=== PATIENT | male | born 1970 | race Caucasian/White ===

== ENCOUNTER 2019-10-27 11:29 | Inpatient (IN) | payer BC, OTHER ==
[2019-10-27 12:33] VITALS: BMI 30.7
--- NOTE | 2019-10-27 13:27 | HP ---
CIWA Score Nausea/Vomitin Muscle Tremors: 3 Anxiety: 3 Agitation: 2 Paroxysmal Sweats: 1-Minimal Palms Moist Orientation: 0-Oriented Tacttile Disturbances: 1-Very Mild Itch/Numbness Auditory Disturbances: 0-None Visual Disturbances: 0-None Headache: 2-Mild CIWA-Ar Total Score: 14 - Admission Criteria OASAS Guidelines: Admission for Medically Managed Detox: Requires at least one of the followin. CIWA greater than 12 2. Seizures within the past 24 hours 3. Delirium tremens within the past 24 hours 4. Hallucinations within the past 24 hours 5. Acute intervention needed for co occurring medical disorder 6. Acute intervention needed for co occurring psychiatric disorder 7. Severe withdrawal that cannot be handled at a lower level of care (continued vomiting, continued diarrhea, abnormal vital signs) requiring intravenous medication and/or fluids 8. Admitting History and Physical - Admission Chief Complaint: i need help to stop drinking alcohol History of Present Illness: this 49 years old male with alcohol dependence ,seeking help to stop,last detox 2016, history of subarachnoid hemorrhage in 918 nicotine dependence cirrhosis of liver longest sobriety 10 years History Source: Patient Limitations to Obtaining History: No Limitations - Past Medical History PERSONAL TRAINER: Yes: Other (subarachnoid hemorhage) Cardiovascular: Yes: HTN Gastrointestinal: Yes: GERD Hepatobiliary: Yes: Cirrhosis - Past Surgical History Additional Past Surgical History: drainage of subarachnoid in 07/26 - Smoking History Smoking history: Current every day smoker Have you smoked in the past 12 months: Yes Aproximately how many cigarettes per day: 10 - Alcohol/Substance Use Hx Alcohol Use: Yes History of Substance Use: reports: Tranquilizers - Social History Usual Living Arrangement: Yes: Alone 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 smoke 1/2 pack/day,living alone,hypertension Admission ROS [facility] - HPI Chief Complaint: i need help to stop drinking alcohol Allergies/Adverse Reactions: Allergies Allergy/AdvReac Type Severity Reaction Status Date / Time No Known Allergies Allergy Verified 10/27/19 12:22 History of Present Illness: this 49 years old male with alcohol dependence,seeking detox,last detox 10 years ago, history of cirrhosis hypertension subarachnoid hemorrhage in 07/26 nicotine dependence longest sobriety 10 years Exam Limitations: No Limitations - Ebola screening Have you traveled outside of the country in the last 21 days: No (N) Have you had contact with anyone from an Ebola affected area: No Do you have a fever: No - Review of Systems Constitutional: Malaise, Night Sweats, Changes in sleep, Weakness EENT: reports: Nose Congestion, Other (subarachnoid hemorrhage) Respiratory: reports: No Symptoms reported Cardiac: reports: No Symptoms Reported GI: reports: Nausea, Abdominal cramping : reports: No Symptoms Reported Musculoskeletal: reports: Back Pain, Muscle Pain Integumentary: reports: Dryness Neuro: reports: Tremors Endocrine: reports: No Symptoms Reported Hematology: reports: No Symptoms Reported Psychiatric: reports: Judgement Intact, Mood/Affect Appropiate, Orientated x3, Anxious, Depressed Other Systems: Reviewed and Negative Patient History - Patient Medical History Hx Anemia: No Hx Asthma: No Hx Chronic Obstructive Pulmonary Disease (COPD): No Hx Cancer: No Hx Cardiac Disorders: No Hx Congestive Heart Failure: No Hx Hypertension: Yes (onmed) Hx Hypercholesterolemia: No Hx Pacemaker: No HX Cerebrovascular Accident: No Hx Seizures: No Hx Dementia: No Hx Diabetes: No Hx Gastrointestinal Disorders: Yes (gerd) Hx Liver Disease: Yes (cirhrhosis) Hx Genitourinary Disorders: No Hx Sexually Transmitted Disorders: No Hx Renal Disease (ESRD): No Hx Thyroid Disease: No Hx Human Immunodeficiency Virus (HIV): No (never been tested) Hx Hepatitis C: No Hx Depression: Yes (anxious) Hx Suicide Attempt: No Hx Bipolar Disorder: No Hx Schizophrenia: No Other Medical History: no suicidal,no homicidal - Patient Surgical History Past Surgical History: Yes Other Surgical History: subarachnoid hemorrhage in07/26 - PPD History Previous Implant?: Yes Documented Results: Negative w/o proof Implanted On Prior [facility] Admission?: No PPD to be Administered?: Yes - Smoking Cessation Smoking history: Current every day smoker Have you smoked in the past 12 months: Yes Aproximately how many cigarettes per day: 20 Cigars Per Day: 0 Hx Chewing Tobacco Use: No Initiated information on smoking cessation: Yes 'Breaking Loose' booklet given: 10/27/19 - Substance & Tx. History Hx Alcohol Use: Yes Hx Substance Use: Yes Substance Use Type: Alcohol, Prescribed Hx Substance Use Treatment: Yes (2016) - Substances abused Alcohol Substance route: Oral Frequency: Daily Amount used: 10 to 12 of12 oz) beer Age of first use: 19 Date of last use: 10/26/19 Alprazolam (Xanax) Substance route: Oral Frequency: 3-6 times per week Amount used: 0.25 mg x2 Age of first use: 49 Date of last use: 10/26/19 Admission Physical Exam [facility] - Vital Signs Vital Signs: Vital Signs - 24 hr 10/27/19 12:28 Temperature 97.2 F L Pulse Rate 79 Respiratory 18 Rate Blood Pressure 140/86 - Physical General Appearance: Yes: Mild Distress, Irritable, Anxious HEENTM: Yes: Normal ENT Inspection, TOMMY, Pharynx Normal Respiratory: Yes: Lungs Clear, Normal Breath Sounds, No Respiratory Distress Neck: Yes: Within Normal Limits, Supple, Trachea in good position Breast: Yes: Within Normal Limits Cardiology: Yes: Within Normal Limits, Regular Rhythm, Regular Rate, S1, S2 Abdominal: Yes: Within Normal Limits, Non Tender, Flat, Soft Genitourinary: Yes: Within Normal Limits Back: Yes: Muscle Spasm Musculoskeletal: Yes: Muscle Pain 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: 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 NML intact, Fully Oriented, Alert, Motor Strength 5/5 Integumentary: Yes: Dry - Diagnostic (1) Alcohol dependence with uncomplicated withdrawal Current Visit: Yes Status: Acute (2) Xanax use disorder, mild Current Visit: Yes Status: Acute (3) Nicotine dependence Current Visit: Yes Status: Acute (4) Essential hypertension Current Visit: Yes Status: Acute (5) History of subarachnoid hemorrhage Current Visit: Yes Status: Acute Cleared for Admission [facility] - Detox or Rehab [facility] Level of Care: Medically Managed Detox Regimen/Protocol: Ativan Breathalyzer - Breathalyzer Breathalyzer: 194 Urine Drug Screen - Test Device Lot number: [id number] Expiration date: 06/06/21 - Control Is test valid?: Yes - Results Drug screen NEGATIVE: No Urine drug screen results: BZO-Benzodiazepines Inpatient Rehab Admission - Rehab Decision to Admit Inpatient rehab admission?: No
[2019-10-27] MEDS ORDERED: BISMUTH SUBSALICYLATE 524 MG/30 ML UD PO PRN (14:06)
[2019-10-27] MEDS ORDERED: IBUPROFEN 400 MG TABLET (FP) PO PRN (14:06)
[2019-10-27] MEDS ORDERED: LORazepam 1 MG TABLET PO PRN (14:06)
[2019-10-27] MEDS ORDERED: MENTHOL/PHENOL 1 EACH UD MM PRN (14:06)
[2019-10-27] MEDS ORDERED: MAGNESIUM CITRATE 300 ML BOTTLE PO PRN (14:06)
[2019-10-27] MEDS ORDERED: METHOCARBAMOL 500 MG TABLET PO PRN (14:06)
[2019-10-27] MEDS ORDERED: NICOTINE POLACRILEX 2 MG GUM BUC PRN (14:06)
[2019-10-27] MEDS ORDERED: hydrOXYzine PAMOATE 25 MG CAPSULE (FP) PO PRN (14:06)
[2019-10-27] MEDS ORDERED: MAGNESIUM HYDROX 2400MG/30ML ORAL SUSPENSION 30 ML CUP PO PRN (14:06)
[2019-10-27] MEDS ORDERED: ACETAMINOPHEN 325 MG TABLET (FP) PO PRN ×2 (14:06)
[2019-10-27] MEDS ORDERED: MAG HYDROX/AL HYDROX/SIMETH 30 ML UNIT-DOSE CUP PO PRN (14:06)
[2019-10-27] MEDS: LORazepam 2 MG TABLET PO SCH ×2 (17:17→22:16)
[2019-10-27] MEDS: NICOTINE 21 MG/24 HOURS TOPICAL PATCH TD SCH (17:24)
[2019-10-27] MEDS: THIAMINE HCL 100 MG TABLET (FP) PO SCH (23:16)
[2019-10-28] MEDS: LORazepam 2 MG TABLET PO SCH ×4 (05:48→22:19)
[2019-10-28] MEDS: PRENATAL VITAMINS W/ FOLIC ACID TABLET (FP) PO SCH (10:20)
[2019-10-28] MEDS: FAMOTIDINE 20 MG TABLET PO SCH (10:20)
[2019-10-28] MEDS: NICOTINE 21 MG/24 HOURS TOPICAL PATCH TD SCH (10:20)
[2019-10-28 10:40] LABS: HEMATOCRIT 37.7 % (35.4-49); HEMOGLOBIN 12.2 GM/dL (11.7-16.9); MCH 29.9 pg (25.7-33.7); MCHC 32.3 g/dl (32.0-35.9); MEAN CELL VOLUME 92.5 fl (80-96); MEAN PLT VOLUME 9.4 fl (7.5-11.1); PLATELET COUNT 53 K/MM3 (134-434); RBC 4.07 M/mm3 (4.00-5.60); RDW 17.5 % (11.9-15.9); WHITE BLOOD COUNT 4.3 K/mm3 (4.0-10.0)
[2019-10-28 10:54] LABS: ALBUMIN 3.6 g/dl (3.4-5.0); BILIRUBIN,TOTAL 1.4 mg/dL (0.2-1); BLOOD UREA NITROGEN 9.9 mg/dL (7-18); CALCIUM 8.4 mg/dL (8.5-10.1); CREATININE 0.6 mg/dL (0.55-1.3); POTASSIUM 3.7 mmol/L (3.5-5.1); TOT PROT 6.5 g/dl (6.4-8.2)
--- NOTE | 2019-10-28 11:36 | PN ---
[facility] CIWA - CIWA Score Nausea/Vomitin-Mild Nausea/No Vomiting Muscle Tremors: 3 Anxiety: 3 Agitation: 2 Paroxysmal Sweats: 2 Orientation: 1-Uncertain about Date (date of week) Tacttile Disturbances: 0-None Auditory Disturbances: 0-None Visual Disturbances: 0-None Headache: 0-None Present CIWA-Ar Total Score: 12 S Progress Note (SOAP) Subjective: 49 years old male admitted on 10/27/19 for alcohol and benzo withdrawal sx managment treating with ativan detox regimen feeling ok today ate breakfast social with peers in day room discuss aftercare with staff patient determines to maintain sober with support networking Objective: 10/28/19 11:36 Vital Signs Temperature 97.4 F L 10/28/19 09:26 Pulse Rate 81 10/28/19 09:26 Respiratory Rate 18 10/28/19 09:26 Blood Pressure 148/85 10/28/19 09:26 O2 Sat by Pulse Oximetry (%) Laboratory Last Values WBC 4.3 K/mm3 (4.0-10.0) 10/28/19 07:35 RBC 4.07 M/mm3 (4.00-5.60) 10/28/19 07:35 Hgb 12.2 GM/dL (11.7-16.9) 10/28/19 07:35 Hct 37.7 % (35.4-49) 10/28/19 07:35 MCV 92.5 fl (80-96) 10/28/19 07:35 MCH 29.9 pg (25.7-33.7) 10/28/19 07:35 MCHC 32.3 g/dl (32.0-35.9) 10/28/19 07:35 RDW 17.5 % (11.9-15.9) H 10/28/19 07:35 Plt Count 53 K/MM3 (134-434) L 10/28/19 07:35 MPV 9.4 fl (7.5-11.1) 10/28/19 07:35 Sodium 140 mmol/L (136-145) 10/28/19 07:35 Potassium 3.7 mmol/L (3.5-5.1) 10/28/19 07:35 Chloride 105 mmol/L (98-107) 10/28/19 07:35 Carbon Dioxide 30 mmol/L (21-32) 10/28/19 07:35 Anion Gap 5 MMOL/L (8-16) L 10/28/19 07:35 BUN 9.9 mg/dL (7-18) 10/28/19 07:35 Creatinine 0.6 mg/dL (0.55-1.3) 10/28/19 07:35 Est GFR (CKD-EPI)AfAm 137.80 10/28/19 07:35 Est GFR (CKD-EPI)NonAf 118.89 10/28/19 07:35 Random Glucose 97 mg/dL (74-106) 10/28/19 07:35 Calcium 8.4 mg/dL (8.5-10.1) L 10/28/19 07:35 Total Bilirubin 1.4 mg/dL (0.2-1) H 10/28/19 07:35 AST 61 U/L (15-37) H 10/28/19 07:35 ALT 37 U/L (13-61) 10/28/19 07:35 Alkaline Phosphatase 109 U/L (45-117) 10/28/19 07:35 Total Protein 6.5 g/dl (6.4-8.2) 10/28/19 07:35 Albumin 3.6 g/dl (3.4-5.0) 10/28/19 07:35 lab noted Assessment: 10/28/19 11:39 alcohol and benzo withdrawal sx Plan: ativan regimen
--- NOTE | 2019-10-28 18:45 | EKG ---
Test Reason : Blood Pressure : / mmHG Vent. Rate : 078 BPM Atrial Rate : 078 BPM P-R Int : 128 ms QRS Dur : 088 ms QT Int : 368 ms P-R-T Axes : 043 017 021 degrees QTc Int : 419 ms NORMAL SINUS RHYTHM NORMAL ECG NO PREVIOUS ECGS AVAILABLE Confirmed by ROXY MURPHY MD ([id number]) on 10/28/2019 6:45:47 PM Referred By: Confirmed By:ROXY MURPHY MD
[2019-10-28] MEDS: THIAMINE HCL 100 MG TABLET (FP) PO SCH (22:18)
[2019-10-28] MEDS: MELATONIN 5 MG TABLETS PO PRN (22:19)
[2019-10-28] MEDS: amLODIPine BESYLATE 5 MG TABLET (FP) PO SCH (22:19)
[2019-10-29] MEDS: LORazepam 1 MG TABLET PO SCH ×4 (05:45→22:07)
--- NOTE | 2019-10-29 09:52 | PN ---
[facility] CIWA - CIWA Score Nausea/Vomitin-Mild Nausea/No Vomiting Muscle Tremors: 2 Anxiety: 2 Agitation: 2 Paroxysmal Sweats: 1-Minimal Palms Moist Orientation: 0-Oriented Tacttile Disturbances: 0-None Auditory Disturbances: 0-None Visual Disturbances: 0-None Headache: 1-Very Mild CIWA-Ar Total Score: 9 S Progress Note (SOAP) Subjective: 49 years old male admitted on 10/27/19 for alcohol and benzo withdrawal sx management treating with ativan detox regimen ate breakfast ambulating on hallway encourage to attend meetings and groups Objective: 10/29/19 09:50 Vital Signs Temperature 97.3 F L 10/29/19 09:23 Pulse Rate 91 H 10/29/19 09:23 Respiratory Rate 18 10/29/19 09:23 Blood Pressure 129/79 10/29/19 09:23 O2 Sat by Pulse Oximetry (%) Laboratory Last Values WBC 4.3 K/mm3 (4.0-10.0) 10/28/19 07:35 RBC 4.07 M/mm3 (4.00-5.60) 10/28/19 07:35 Hgb 12.2 GM/dL (11.7-16.9) 10/28/19 07:35 Hct 37.7 % (35.4-49) 10/28/19 07:35 MCV 92.5 fl (80-96) 10/28/19 07:35 MCH 29.9 pg (25.7-33.7) 10/28/19 07:35 MCHC 32.3 g/dl (32.0-35.9) 10/28/19 07:35 RDW 17.5 % (11.9-15.9) H 10/28/19 07:35 Plt Count 53 K/MM3 (134-434) L 10/28/19 07:35 MPV 9.4 fl (7.5-11.1) 10/28/19 07:35 Sodium 140 mmol/L (136-145) 10/28/19 07:35 Potassium 3.7 mmol/L (3.5-5.1) 10/28/19 07:35 Chloride 105 mmol/L (98-107) 10/28/19 07:35 Carbon Dioxide 30 mmol/L (21-32) 10/28/19 07:35 Anion Gap 5 MMOL/L (8-16) L 10/28/19 07:35 BUN 9.9 mg/dL (7-18) 10/28/19 07:35 Creatinine 0.6 mg/dL (0.55-1.3) 10/28/19 07:35 Est GFR (CKD-EPI)AfAm 137.80 10/28/19 07:35 Est GFR (CKD-EPI)NonAf 118.89 10/28/19 07:35 Random Glucose 97 mg/dL (74-106) 10/28/19 07:35 Calcium 8.4 mg/dL (8.5-10.1) L 10/28/19 07:35 Total Bilirubin 1.4 mg/dL (0.2-1) H 10/28/19 07:35 AST 61 U/L (15-37) H 10/28/19 07:35 ALT 37 U/L (13-61) 10/28/19 07:35 Alkaline Phosphatase 109 U/L (45-117) 10/28/19 07:35 Total Protein 6.5 g/dl (6.4-8.2) 10/28/19 07:35 Albumin 3.6 g/dl (3.4-5.0) 10/28/19 07:35 RPR Titer Nonreactive (NONREACTIVE) 10/28/19 07:35 lab noted Assessment: 10/29/19 09:51 alcohol and benzo withdrawal Plan: ativan regimen
[2019-10-29] MEDS: FAMOTIDINE 20 MG TABLET PO SCH (10:11)
[2019-10-29] MEDS: NICOTINE 21 MG/24 HOURS TOPICAL PATCH TD SCH (10:12)
[2019-10-29] MEDS: PRENATAL VITAMINS W/ FOLIC ACID TABLET (FP) PO SCH (10:12)
[2019-10-29] MEDS: THIAMINE HCL 100 MG TABLET (FP) PO SCH (22:07)
[2019-10-29] MEDS: amLODIPine BESYLATE 5 MG TABLET (FP) PO SCH (22:07)
[2019-10-30] MEDS ORDERED: LORazepam 0.5 MG TABLET PO PRN
[2019-10-30] MEDS: LORazepam 0.5 MG TABLET PO SCH ×4 (05:06→22:13)
[2019-10-30] MEDS: FAMOTIDINE 20 MG TABLET PO SCH (10:08)
[2019-10-30] MEDS: PRENATAL VITAMINS W/ FOLIC ACID TABLET (FP) PO SCH (10:08)
--- NOTE | 2019-10-30 10:08 | PN ---
[facility] CIWA - CIWA Score Nausea/Vomitin-No Nausea/No Vomiting Muscle Tremors: 2 Anxiety: 2 Agitation: 0-Normal Activity Paroxysmal Sweats: 1-Minimal Palms Moist Orientation: 0-Oriented Tacttile Disturbances: 0-None Auditory Disturbances: 0-None Visual Disturbances: 0-None Headache: 0-None Present CIWA-Ar Total Score: 5 S Progress Note (SOAP) Subjective: 49 years old male admitted on 10/27/19 for alcohol and benzo withdrawal sx management treating with ativan detox regimen feeling better today reports to be discharged from detox and back to work that his brother will pick him up tomorrow and join family events states having strong family support toward recovery Objective: 10/30/19 10:10 Vital Signs Temperature 98.2 F 10/30/19 09:03 Pulse Rate 77 10/30/19 09:03 Respiratory Rate 18 10/30/19 09:03 Blood Pressure 132/71 10/30/19 09:03 O2 Sat by Pulse Oximetry (%) Laboratory Last Values WBC 4.3 K/mm3 (4.0-10.0) 10/28/19 07:35 RBC 4.07 M/mm3 (4.00-5.60) 10/28/19 07:35 Hgb 12.2 GM/dL (11.7-16.9) 10/28/19 07:35 Hct 37.7 % (35.4-49) 10/28/19 07:35 MCV 92.5 fl (80-96) 10/28/19 07:35 MCH 29.9 pg (25.7-33.7) 10/28/19 07:35 MCHC 32.3 g/dl (32.0-35.9) 10/28/19 07:35 RDW 17.5 % (11.9-15.9) H 10/28/19 07:35 Plt Count 53 K/MM3 (134-434) L 10/28/19 07:35 MPV 9.4 fl (7.5-11.1) 10/28/19 07:35 Sodium 140 mmol/L (136-145) 10/28/19 07:35 Potassium 3.7 mmol/L (3.5-5.1) 10/28/19 07:35 Chloride 105 mmol/L (98-107) 10/28/19 07:35 Carbon Dioxide 30 mmol/L (21-32) 10/28/19 07:35 Anion Gap 5 MMOL/L (8-16) L 10/28/19 07:35 BUN 9.9 mg/dL (7-18) 10/28/19 07:35 Creatinine 0.6 mg/dL (0.55-1.3) 10/28/19 07:35 Est GFR (CKD-EPI)AfAm 137.80 10/28/19 07:35 Est GFR (CKD-EPI)NonAf 118.89 10/28/19 07:35 Random Glucose 97 mg/dL (74-106) 10/28/19 07:35 Calcium 8.4 mg/dL (8.5-10.1) L 10/28/19 07:35 Total Bilirubin 1.4 mg/dL (0.2-1) H 10/28/19 07:35 AST 61 U/L (15-37) H 10/28/19 07:35 ALT 37 U/L (13-61) 10/28/19 07:35 Alkaline Phosphatase 109 U/L (45-117) 10/28/19 07:35 Total Protein 6.5 g/dl (6.4-8.2) 10/28/19 07:35 Albumin 3.6 g/dl (3.4-5.0) 10/28/19 07:35 RPR Titer Nonreactive (NONREACTIVE) 10/28/19 07:35 lab noted Assessment: 10/30/19 10:10 alcohol and benzo withdrawal Plan: ativan regimen
[2019-10-30] MEDS: NICOTINE 21 MG/24 HOURS TOPICAL PATCH TD SCH (10:09)
[2019-10-30] MEDS: THIAMINE HCL 100 MG TABLET (FP) PO SCH (22:11)
[2019-10-30] MEDS: amLODIPine BESYLATE 5 MG TABLET (FP) PO SCH (22:12)
[2019-10-30] MEDS: MELATONIN 5 MG TABLETS PO PRN (22:13)
[2019-10-31] MEDS ORDERED: LORazepam 0.5 MG TABLET PO ONE (05:00)
[2019-10-31 06:50] VITALS: BP 132/79; PULSE 78; TEMP 97
--- NOTE | 2019-10-31 14:46 | DS ---
[facility] Detox Discharge Summary Admission Date: 10/27/19 Discharge Date: 10/31/19 - History Present History: Alcohol Dependence, Sedative Dependence Additional Comments: 49 years old male admitted on 10/27/19 for alcohol and benzo withdrawal sx management treated with ativan detox regimen patient tolerated well alert oriented x 2 cardiac s1s2 regular rate rhythm respiratory clear lung bilaterally on auscultation extremities full range of motion Pertinent Past History: patient prefers to be discharged today as per estimated discharge date his girlfriend will pick him up from detox facility to home and joint family events today than attend aftercare - Physical Exam Results Vital Signs: Vital Signs Temperature 97.0 F L 10/31/19 06:49 Pulse Rate 78 10/31/19 06:49 Respiratory Rate 18 10/31/19 06:49 Blood Pressure 132/79 10/31/19 06:49 O2 Sat by Pulse Oximetry (%) Pertinent Admission Physical Exam Findings: alcohol and benzo withdrawal sx Vital Signs Temperature 97.0 F L 10/31/19 06:49 Pulse Rate 78 10/31/19 06:49 Respiratory Rate 18 10/31/19 06:49 Blood Pressure 132/79 10/31/19 06:49 O2 Sat by Pulse Oximetry (%) Laboratory Last Values WBC 4.3 K/mm3 (4.0-10.0) 10/28/19 07:35 RBC 4.07 M/mm3 (4.00-5.60) 10/28/19 07:35 Hgb 12.2 GM/dL (11.7-16.9) 10/28/19 07:35 Hct 37.7 % (35.4-49) 10/28/19 07:35 MCV 92.5 fl (80-96) 10/28/19 07:35 MCH 29.9 pg (25.7-33.7) 10/28/19 07:35 MCHC 32.3 g/dl (32.0-35.9) 10/28/19 07:35 RDW 17.5 % (11.9-15.9) H 10/28/19 07:35 Plt Count 53 K/MM3 (134-434) L 10/28/19 07:35 MPV 9.4 fl (7.5-11.1) 10/28/19 07:35 Sodium 140 mmol/L (136-145) 10/28/19 07:35 Potassium 3.7 mmol/L (3.5-5.1) 10/28/19 07:35 Chloride 105 mmol/L (98-107) 10/28/19 07:35 Carbon Dioxide 30 mmol/L (21-32) 10/28/19 07:35 Anion Gap 5 MMOL/L (8-16) L 10/28/19 07:35 BUN 9.9 mg/dL (7-18) 10/28/19 07:35 Creatinine 0.6 mg/dL (0.55-1.3) 10/28/19 07:35 Est GFR (CKD-EPI)AfAm 137.80 10/28/19 07:35 Est GFR (CKD-EPI)NonAf 118.89 10/28/19 07:35 Random Glucose 97 mg/dL (74-106) 10/28/19 07:35 Calcium 8.4 mg/dL (8.5-10.1) L 10/28/19 07:35 Total Bilirubin 1.4 mg/dL (0.2-1) H 10/28/19 07:35 AST 61 U/L (15-37) H 10/28/19 07:35 ALT 37 U/L (13-61) 10/28/19 07:35 Alkaline Phosphatase 109 U/L (45-117) 10/28/19 07:35 Total Protein 6.5 g/dl (6.4-8.2) 10/28/19 07:35 Albumin 3.6 g/dl (3.4-5.0) 10/28/19 07:35 RPR Titer Nonreactive (NONREACTIVE) 10/28/19 07:35 lab noted no motrin patient agrees to bringing in lab report to aftercare facility for follow up - Treatment Hospital Course: Detox Protocol Followed, Detoxed Safely, Responded well, Discharged Condition Good, Rehab Referral Accepted Patient has Accepted a Rehab Referral to: [facility] - Medication Discharge Medications: Ambulatory Orders Pantoprazole Sodium 40 mg PO DAILY 10/27/19 Propranolol HCl 20 mg PO DAILY 10/27/19 - Diagnosis (1) Sedative, hypnotic or anxiolytic dependence, uncomplicated Status: Acute (2) Alcohol dependence with uncomplicated withdrawal Status: Acute (3) Essential hypertension Status: Chronic (4) Nicotine dependence Status: Acute Qualifiers: Nicotine product type: cigarettes Substance use status: in withdrawal Qualified Code(s): F17.213 - Nicotine dependence, cigarettes, with withdrawal - AMA Did Patient Leave Against Medical Advice: No CIWA Score - CIWA Score Nausea/Vomitin-No Nausea/No Vomiting Muscle Tremors: 2 Anxiety: 1-Mildly Anxious Agitation: 0-Normal Activity Paroxysmal Sweats: No Perspiration Orientation: 0-Oriented Tacttile Disturbances: 0-None Auditory Disturbances: 0-None Visual Disturbances: 0-None Headache: 0-None Present CIWA-Ar Total Score: 3
== END 2019-10-31 08:54 | disposition home or self-care (01) | DRG 775 ==
LOC: YASAS 11:29 → Y3N 14:53
PROVIDERS: ADMIT Allergy & Immunology; ATTEND Allergy & Immunology
PROC: HZ2ZZZZ Detoxification Services for Substance Abuse Treatment (ICD-10-PCS; principal; 2019-10-27)
DX: F10.230 Alcohol dependence with withdrawal, uncomplicated (principal); F13.90 Sedative, hypnotic, or anxiolytic use, unspecified, uncomplicated; F17.210 Nicotine dependence, cigarettes, uncomplicated; I10 Essential (primary) hypertension; K74.60 Unspecified cirrhosis of liver; K21.9 Gastro-esophageal reflux disease without esophagitis
CPT/HCPCS: 36415; 80053; 85027; 86593; 93005; 93010